=== PATIENT | female | born 1965 | race Caucasian/White ===

== ENCOUNTER 2020-06-19 09:51 | Emergency (ER) | payer OTHER ==
[2020-06-19 09:57] VITALS: RESP 18
[2020-06-19] MEDS ORDERED: SODIUM CHLORIDE 0.9% 1,000 ML IV STA (10:17)
[2020-06-19] MEDS ORDERED: MORPHINE SULFATE 4 MG/ML SYRINGE IV STA (10:20)
[2020-06-19] MEDS ORDERED: diphenhydrAMINE 50 MG/ML 1 ML VIAL IVP STA (10:20)
[2020-06-19] MEDS ORDERED: ONDANSETRON 4 MG/2 ML VIAL IVP STA (10:20)
--- NOTE | 2020-06-19 10:32 | ED ---
Headache HPI - General Chief Complaint: Headache Stated Complaint: headache/back pain Time Seen by Provider: 06/19/20 10:03 Mode of arrival: ambulatory Limitations: no limitations - History of Present Illness Initial Comments: Patient is a 54-year-old female with history of hypertension, diabetes, COPD, presenting to the emergency department with complaints of a headache for the last 2 days. She states the headache is severe in nature, is causing some mild nausea. She states she's had mild headaches in the past but nothing to this nature. She denies any falls or trauma. She states she does have chronic neck and back pains and thinks it may be coming from that. She states she had lumbar surgery and [place] in 2018 and thinks she might have aggravated that is causing a headache. She thinks she had a fusion done but is unsure. She takes Excedrin for her aches and pains. She denies any blurry vision, no recent fever or chills. She states she does have some achiness in her neck that is normal for her. She denies any chest pain or shortness of breath, no vomiting or diarrhea, no abdominal pain. She has no further complaints at this time. Upon arrival to the ER her vital signs are stable. - Related Data Allergies Allergy/AdvReac Type Severity Reaction Status Date / Time ibuprofen [From Motrin] Allergy Nausea & Verified 06/19/20 09:57 Vomiting levofloxacin [From Levaquin] Allergy Anaphylaxis Verified 06/19/20 09:58 Review of Systems ROS Statement: Those systems with pertinent positive or pertinent negative responses have been documented in the HPI. ROS Other: All systems not noted in ROS Statement are negative. Past Medical History Past Medical History: Asthma, COPD, Diabetes Mellitus History of Any Multi-Drug Resistant Organisms: None Reported Past Surgical History: Section, Cholecystectomy, Orthopedic Surgery Past Psychological History: Anxiety, Bipolar, Depression Smoking Status: Current every day smoker Past Alcohol Use History: None Reported Past Drug Use History: None Reported General Exam - General Exam Comments Initial Comments: GENERAL: Patient is well-developed and well-nourished. Patient is nontoxic and in no acute distress. HEAD: Atraumatic, normocephalic. EYES: Pupils equal round and reactive to light, extraocular movements intact, sclera anicteric, conjunctiva are normal. Eyelids were unremarkable. ENT: TMs normal, nares patent, oropharynx clear without exudates. Moist mucous membranes. NECK: Normal range of motion, supple without lymphadenopathy or JVD. LUNGS: Unlabored respirations. Breath sounds clear to auscultation bilaterally and equal. No wheezes rales or rhonchi. HEART: Regular rate and rhythm without murmurs, rubs or gallops. ABDOMEN: Soft, nontender, normoactive bowel sounds. No guarding, no rebound. No masses appreciated. : Deferred MUSCULOSKELETAL: Normal extremities with adequate strength and normal range of motion, no pitting or edema. No clubbing or cyanosis. NEUROLOGICAL: Patient is alert and oriented x 3. Motor and sensory are also intact. Cranial nerves II through XII grossly intact. Symmetrical smile. Normal speech, normal gait. PSYCH: Normal mood, normal affect. SKIN: Warm, Dry, normal turgor, no rashes or lesions noted. Limitations: no limitations Course Vital Signs 06/19/20 09:53 Temperature 97.9 F Pulse Rate 97 Respiratory 18 Rate Blood Pressure 125/80 O2 Sat by Pulse 100 Oximetry Medical Decision Making - Medical Decision Making Patient is a 54-year-old female with history of hypertension, COPD, presenting for headache 2 days. Her vitals are stable, afebrile. Her exam is unremarkable, no acute neuro deficits. He of the brain shows no acute findings. Patient was given some fluids, pain control and Zofran. Upon reexamination she states her headache is pretty much gone, she does have some mild pressure still. She states she feels well enough to go home and rest. Her fianc will be driving her home. Her vital signs remained stable. She will follow-up with her primary care physician as well as her surgeon for her continued and chronic back pain. Patient is stable for discharge. Patient is in agreement with this plan of care. Return parameters were discussed with the patient and they verbalized understanding. Case discussed with Dr. Garcia. Disposition Clinical Impression: Headache Disposition: HOME SELF-CARE Condition: Stable Instructions (If sedation given, give patient instructions): Acute Headache (ED) Additional Instructions: Please return to the Emergency Department if symptoms worsen or any other concerns. Follow-up with your family doctor. Also follow-up with your surgeon regarding your continued low back pain. Is patient prescribed a controlled substance at d/c from ED?: No Referrals: Nonstaff,Physician [Primary Care Provider] - 1-2 days Time of Disposition: 11:51
--- NOTE | 2020-06-19 11:26 | CT ---
EXAMINATION TYPE: CT brain wo con DATE OF EXAM: 06/19/2020 COMPARISON: None HISTORY: Headache and dizziness. CT DLP: 1090.[address] of the brain was performed. The ventricles, basal cisterns and sulci overlying the cerebral convexities demonstrate mild enlargem ent. There is no evidence for intracranial hemorrhage or sulcal effacement. There is decreased attenuation about the periventricular white matter and deep white matter of both c erebral hemispheres, compatible with chronic small vessel ischemia. Differential diagnosis does inclu de demyelination. No mass effects are seen.No midline shift. Osseous calvarium is intact. If symptoms persist consider MRI. IMPRESSION: 1. Age related atrophic and chronic small vessel ischemic change without acute intracranial process s een at this time.
[2020-06-19 12:32] VITALS: BP 108/68; PULSE 63; TEMP 98
== END 2020-06-19 12:30 | disposition home or self-care (01) ==
LOC: EC 09:51
DX: R51.9 Headache, unspecified (principal); R11.0 Nausea; M54.2 Cervicalgia; G89.29 Other chronic pain; I10 Essential (primary) hypertension; J44.9 Chronic obstructive pulmonary disease, unspecified; F41.9 Anxiety disorder, unspecified; F32.9 Major depressive disorder, single episode, unspecified; F17.200 Nicotine dependence, unspecified, uncomplicated; E11.9 Type 2 diabetes mellitus without complications
CPT/HCPCS: 70450; 99284; 96374; 96375 ×2; J2270; J1200; J2405